=== PATIENT | male | born 1965 | race Caucasian/White ===

== ENCOUNTER 2017-10-13 09:10 | Emergency (ER) | payer OTHER ==
[~2017-10-13] VITALS: Ht 180.3 cm; Wt 64.9 kg
--- OUTSIDE RECORDS SUMMARY | 2017-10-13 09:13 | XMS REPORT | Clinical Summary ---
Author Author [facility] Organization [facility] Address Unknown Phone Unavailable Care Team Providers Care Head Of Merchandise Buying Name Role Phone Asked, Pcp PCP Unavailable Allergies No Known Allergies Current Medications Prescription Sig. Disp. Refills Start End Date Status Date sirolimus (RAPAMUNE) 1 MG Take 3 mg by mouth daily. Active tablet mycophenolate (MYFORTIC) Take 720 mg by mouth 2 Active 360 MG tablet,delayed (two) times a day. release (DR/EC) EC tablet amLODIPine (NORVASC) 5 mg Take 5 mg by mouth daily. Active tablet atorvastatin (LIPITOR) 20 Take 20 mg by mouth Active MG tablet daily. losartan (COZAAR) 50 MG Take 50 mg by mouth 2 Active tablet (two) times a day. atorvastatin (LIPITOR) 10 Take 10 mg by mouth 11/12/19 Discontin MG tablet daily. 17 ued amLODIPine (NORVASC) 10 Take 5 mg by mouth daily. 11/12/19 Discontin mg tablet 17 ued losartan (COZAAR) 25 MG Take 25 mg by mouth 11/12/19 Discontin tablet daily. 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 08/27/2017 Telephone Transplant Josie Christiansen 06/14/2017 Telephone Transplant Tiffany Crawford MA Medical clearance needed 06/13/2017 Refill General Surgery Anthony Tobias MD 06/05/2017 Refill General Surgery Anthony Tobias MD 05/01/2017 Refill General Surgery Anthony Tobias MD 12/12/2016 Refill General Surgery Anthony Tobias MD 11/12/2016 Telephone Transplant Leann Kam LCSW Call back re : med cost increase 11/12/2016 Telephone Transplant Yesy Christiansen, [facility] Rx Issues 11/11/2016 Hospital Transplant Anthony Tobias MD History of simultaneous Encounter kidney and pancreas transplant (Primary Dx); Mixed hyperlipidemia; Immunosuppressive management encounter following kidney transplant 11/11/2016 Hospital Transplant Anthony Tobias MD Pancreas replaced by Encounter transplant; Kidney replaced by transplant; Encounter for therapeutic drug monitoring 11/10/2016 Transcribe Transplant Virgen Hawkins RN Encounter for therapeutic Orders drug monitoring (Primary Dx); Kidney replaced by transplant; 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 11/04/2016 Refill General Surgery Anthony Tobias MD 11/03/2016 Refill General Surgery Anthony Tobias MD 10/30/2016 Refill General Surgery Anthony Tobias MD 10/17/2016 Refill General Surgery Anthony Tobias MD after 10/12/2016 Social History Tobacco Use Types Packs/Day Years Used Date Never Assessed Sex Assigned at Date Recorded Not on file Last Filed Vital Signs Vital Sign Reading Time Taken Blood Pressure 134/74 11/11/2016 2:16 PM CDT Pulse 80 11/11/2016 2:15 PM CDT Temperature 36.1 C (96.9 F) 11/11/2016 2:15 PM CDT Respiratory Rate 18 11/11/2016 2:15 PM CDT Oxygen Saturation 100% 11/11/2016 2:15 PM CDT Inhaled Oxygen - - Concentration Weight 62.8 kg (138 lb 8 oz) 11/11/2016 2:15 PM CDT Height 180.3 cm (5' 11") 11/11/2016 2:15 PM CDT Body Mass Index 19.32 11/11/2016 2:15 PM CDT Plan of Treatment Date Type Specialty Care Team Description 11/24/2017 Appointment Transplant Anthony Tobias MD [address] [place] [address] 11/24/2017 Appointment Transplant Anthony Tobias MD [address] [place] [address] Health Maintenance Due Date Last Done Comments COLONOSCOPY 2016 INFLUENZA VACCINE 03/02/2017 Results * Cytomegalovirus by PCR (09/02/2017 8:17 AM) Only the most recent of 2 results within the time period is included. Component Value Ref Range Cytomegalovirus by PCR Not-Detected Not-Detected IU/mL Cytomegalovirus by PCR See link below for PDF Lab ReportComment: Specimen Performing Laboratory [facility] DEPARTMENT OF PATHOLOGY AND GENOMIC MEDICINE [address] [place] [address] * IKNOW Viracor (09/02/2017 8:17 AM) Component Value Ref Range IKNOW Viracor 568 ATP ng/mL Comment: [employer]Know ATP (Cylex) Assay Range: Low Immune Cell Response: </=225 ATP ng/ml Moderate Immune Cell Response: 226-524 ATP ng/ml Strong Immune Cell Response: >/=525 ATP ng/ml Test performed by: VIRACOR/IBT [address] [place] [address] Specimen Performing Laboratory Blood [facility] DEPARTMENT OF PATHOLOGY AND GENOMIC MEDICINE [address] [place], [place] [id number] * Estimated GFR (09/02/2017 8:17 AM) Only the most recent of 2 results within the time period is included. Component Value Ref Range GFR Non Af Amer 53 (A) mL/min/1.73 m2 GFR Af Amer 65 mL/min/1.73 m2 Comment: Chronic kidney disease: <60 mL/min/1.73m2 Kidney failure: <15 mL/min/1.73m2 The estimated GFR is calculated from the IDMS-traceable Modification of Diet in Renal Disease Equation. The accuracy of the calculation is poor when the creatinine is normal. Calculated values >90 mL/min/1.73m2 are not reported. This equation has not been validated in children (<18 years), women, the elderly (>70 years), or ethnic groups other than Caucasians and Americans. Specimen Performing Laboratory Plasma specimen [facility] DEPARTMENT OF PATHOLOGY AND GENOMIC MEDICINE [address] [place] [address] * Donor specific antibody (09/02/2017 8:17 AM) Only the most recent of 2 results within the time period is included. Component Value Ref Range Donor specific antibody See link below for PDF Lab Report Specimen Performing Laboratory [facility] DEPARTMENT OF PATHOLOGY AND [facility] [address] [place] [phone] * BK virus by PCR (09/02/2017 8:17 AM) Only the most recent of 2 results within the time period is included. Component Value Ref Range BK virus PCR Not-Detected Not-Detected copies/mL BK virus PCR See link below for PDF Lab ReportComment: Specimen Performing Laboratory [facility] DEPARTMENT OF PATHOLOGY AND [facility] [address] [place] [address] * Sirolimus level (09/02/2017 8:17 AM) Only the most recent of 2 results within the time period is included. Component Value Ref Range Sirolimus 12.2 ng/mL Comment: The recommended trough is 4-12 ng/mL while on CNI (calcineurin inhibitors: Cyclcosporine and Tacrolimus). When used without CNI, higher trough concentrations may be desired, typically 12-20 ng/mL. Occasional patients may require 20-30 ng/mL. Test performed using [employer] chemiluminescent microparticle immunoassay for Sirolimus on the [employer] i System Specimen Performing Laboratory Blood [facility] DEPARTMENT OF PATHOLOGY AND GENOMIC MEDICINE [address] [place] [phone] * Insulin, random (09/02/2017 8:17 AM) Only the most recent of 2 results within the time period is included. Component Value Ref Range Insulin, random 14.6Comment: The reference interval for fasting mU/L insulin is 2.6-24.9 mU/L Specimen Performing Laboratory Plasma specimen [facility] DEPARTMENT OF PATHOLOGY AND [address] [address] * Proinsulin level (09/02/2017 8:17 AM) Only the most recent of 2 results within the time period is included. Component Value Ref Range Proinsulin 1.8 <=8.0 pmol/L Comment: INTERPRETIVE INFORMATION: Proinsulin, Intact Proinsulin, Intact: Fasting intact proinsulin values above the reference interval indicate a possible insulin secreting pancreatic tumor (insulinoma) in patients with hypoglycemia. Fasting intact proinsulin values range from 3 to 50 pmol/L in patients with untreated type 2 diabetes. Performed by [facility], [address] [place] [address] [email or web address], Joe Ball MD - Lab. Director Specimen Performing Laboratory Serum [address] [address] * C-peptide (09/02/2017 8:17 AM) Only the most recent of 2 results within the time period is included. Component Value Ref Range C-peptide 2.0 1.1 - 4.4 ng/mL Specimen Performing Laboratory Plasma specimen [facility] DEPARTMENT OF PATHOLOGY AND GENOMIC MEDICINE [address] [place] [address] * Urinalysis, automated with microscopy (09/02/2017 8:17 AM) Component Value Ref Range Color, UA Straw Appearance, UA Clear Specific gravity, UA 1.016 1.001 - 1.035 pH, UA 5.0 5.0 - 8.5 Protein, UA 3+ (A) Negative Glucose, UA Negative Negative Ketones, UA Negative Negative Bilirubin, UA Negative Negative Blood, UA Negative Negative Nitrite, UA Negative Negative Urobilinogen, UA <2.0 <2.0 Leukocyte esterase, UA Negative Negative WBC, UA <1 0 - 1 /HPF RBC, UA 2 (H) 0 - 1 /HPF Bacteria, UA Few None seen Yeast, UA None seen Yeast with pseudohyphae, None seen UA Specimen Performing Laboratory Urine [facility] DEPARTMENT OF PATHOLOGY AND GENOMIC MEDICINE [address] [place] [id number] * CBC with platelet and differential (09/02/2017 8:17 AM) Only the most recent of 2 results within the time period is included. Component Value Ref Range WBC 6.41 4.50 - 11.00 k/uL RBC 5.27 4.40 - 6.00 m/uL HGB 14.7 14.0 - 18.0 g/dL HCT 45.2 41.0 - 51.0 % MCV 85.8 82.0 - 100.0 fL MCH 27.9 27.0 - 34.0 pg MCHC 32.5 31.0 - 37.0 g/dL RDW - SD 39.9 37.0 - 55.0 fL MPV 10.4 8.8 - 13.2 fL Platelet count 293 150 - 400 k/uL Nucleated RBC 0.00 /100 WBC Neutrophils 72.6 (H) 39.0 - 69.0 % Lymphocytes 15.9 (L) 25.0 - 45.0 % Monocytes 7.2 0.0 - 10.0 % Eosinophils 3.0 0.0 - 5.0 % Basophils 0.8 0.0 - 1.0 % Immature granulocytes 0.5Comment: "Immature granulocytes" 0.0 - 1.0 % (promyelocytes, myelocytes, metamyelocytes) Specimen Performing Laboratory Blood [facility] AND [address] [address] * Uric acid level (09/02/2017 8:17 AM) Only the most recent of 2 results within the time period is included. Component Value Ref Range Uric acid 6.0 3.4 - 7.0 mg/dL Specimen Performing Laboratory Plasma specimen [facility] [address] [address] * Phosphorus level (09/02/2017 8:17 AM) Only the most recent of 2 results within the time period is included. Component Value Ref Range Phosphorus 2.2 (L) 2.4 - 4.5 mg/dL Specimen Performing Laboratory Plasma specimen [facility] DEPARTMENT PATHOLOGY AND [address] [address] * Magnesium level (09/02/2017 8:17 AM) Only the most recent of 2 results within the time period is included. Component Value Ref Range Magnesium 2.0 1.6 - 2.6 mg/dL Specimen Performing Laboratory Plasma specimen [facility] AND [address] [address] * Lipase level (09/02/2017 8:17 AM) Only the most recent of 2 results within the time period is included. Component Value Ref Range Lipase 23 13 - 60 U/L Specimen Performing Laboratory Plasma specimen [facility] [address] [address] * Hemoglobin A1c (09/02/2017 8:17 AM) Only the most recent of 2 results within the time period is included. Component Value Ref Range Hemoglobin A1C 5.6 4.0 - 5.6 % Comment: HbA1c cutoffs for diagnosing diabetes: 4.0% - 5.6%=normal 5.7% - 6.4%=increased risk for diabetes (prediabetes) >=6.5%=diabetes Goals for glycemic control (ADA 2016) < 7.0% Target for non adults with diabetes. More or less stringent targets may be appropriate for individual patients. <7.5% Target for Children and adolescents with type 1 diabetes. Specimen Performing Laboratory Blood [facility] [address] [place] [address] * Amylase level (09/02/2017 8:17 AM) Only the most recent of 2 results within the time period is included. Component Value Ref Range Amylase 74 28 - 100 U/L Specimen Performing Laboratory Plasma specimen [facility] DEPARTMENT OF PATHOLOGY AND GENOMIC MEDICINE [address] [place] [address] * Comprehensive metabolic panel (09/02/2017 8:17 AM) Only the most recent of 2 results within the time period is included. Component Value Ref Range Sodium 140 135 - 148 mEq/L Potassium 4.0 3.5 - 5.0 mEq/L Chloride 98 98 - 112 mEq/L CO2 31 24 - 31 mEq/L Anion gap 11 7 - 15 mEq/L Comment: Starting from October , anion gap calculation no longer incorporates potassium. Please note the change. BUN 22 (H) 6 - 20 mg/dL Creatinine 1.4 (H) 0.7 - 1.2 mg/dL Glucose 110 (H) 65 - 99 mg/dL Calcium 9.9 8.3 - 10.2 mg/dL Protein 7.6 6.3 - 8.3 g/dL Comment: [place] 4.6-7.0 g/dL 1 week 4.4-7.6 g/dL 7 months-1year 5.1-7.3 g/dL 1-2 years 5.6-7.5 g/dL >3 years 6.0-8.0 g/dL 18-150 6.3-8.3 g/dL Albumin 3.7 3.5 - 5.0 g/dL A/G ratio 0.9 0.7 - 3.8 Alkaline phosphatase 97 40 - 129 U/L AST 32 10 - 50 U/L ALT 32 5 - 50 U/L Total bilirubin 0.3 0.0 - 1.2 mg/dL Specimen Performing Laboratory Plasma specimen [facility] DEPARTMENT OF PATHOLOGY AND [facility] [address] [place] [phone] * Urinalysis screen and microscopy, with reflex to culture (11/11/2016 9:56 AM) Component Value Ref Range Specimen site Clean catch Color, UA Yellow Appearance, UA Clear Specific gravity, UA 1.016 1.001 - 1.035 pH, UA 7.0 5.0 - 8.5 Protein, UA 3+ (A) Negative Glucose, UA Negative Negative Ketones, UA Negative Negative Bilirubin, UA Negative Negative Blood, UA Negative Negative Nitrite, UA Negative Negative Urobilinogen, UA <2.0 <2.0 Leukocyte esterase, UA Negative Negative WBC, UA 1 0 - 1 /HPF RBC, UA 1 0 - 1 /HPF Bacteria, UA None seen None seen Yeast, UA None seen Yeast with pseudohyphae, None seen UA Specimen Performing Laboratory Urine [facility]PART[facility] OF PATHOLOGY AND GENOMIC MEDICINE [address] [place] [id number] * Protein, urine, random (11/11/2016 9:56 AM) Component Value Ref Range Protein, urine random 131 mg/dL Specimen Performing Laboratory Urine [facility] DEPARTMENT OF PATHOLOGY AND GENOMIC MEDICINE [address] [place] [address] * Creatinine level, urine, random (11/11/2016 9:56 AM) Component Value Ref Range Creatinine, urine, random 151 mg/dL Specimen Performing Laboratory Urine [facility]PART[facility] OF PATHOLOGY AND GENOMIC MEDICINE [address] [place] [phone] * Urine culture (11/11/2016 9:56 AM) Component Value Ref Range Urine culture SEE COMMENTComment: Bacteriuria screen negative. Specimen Performing Laboratory [facility]PART[facility] OF PATHOLOGY AND GENOMIC MEDICINE [address] [place] [address] * Lipid panel (11/11/2016 9:56 AM) Component Value Ref Range Cholesterol 241 (H) <200 mg/dL Triglycerides 106 <150 mg/dL HDL cholesterol 65 >40 mg/dL LDL cholesterol 160 (H)Comment: Result obtained by direct LDL <100 mg/dL measurement Lipid panel SeeBelow interpretation Comment: Total Cholesterol (mg/dL) <200 Desirable 200-239 Borderline-high >=240 High Triglycerides (mg/dL) <150 Normal 150-199 Borderline-high 200-499 High >=500 Very high HDL Cholesterol (mg/dL) <40 Low (male) <40 Low (female) LDL Cholesterol (mg/dL) <100 Optimal 100-129 Near or above optimal 130-159 Borderline-high 160-189 High >=190 Very high Risk Catergories that modify LDL goals. Risk Catergories LDL goal (mg/dL) CHD and CHD risk equivalent <100 (10-year risk >20%) Multiple (2+) risk factors <130 (10-year risk=<20%) 0-1 risk factors <160 (<10-year risk) Defining levels of lipids in metabolic syndrome Triglycerides >=150 mg/dL HDL Cholesterol Men <40 mg/dL Women <40 mg/dL Non-HDL cholesterol is a second target for therapy in persons with high triglycerides (>=200 mg/dL) Specimen Performing Laboratory Plasma specimen [facility] DEPARTMENT OF PATHOLOGY AND GENOMIC MEDICINE [address] [place] [address] after 10/12/2016 Insurance Payer Benefit Subscriber ID Type Phone Address Plan / Group [facility] xxxxxxxxx HMO/PPO THCARE CHOICE/CHO ICE +
--- OUTSIDE RECORDS SUMMARY | 2017-10-13 09:13 | XMS REPORT | Continuity of Care Document ---
Author Author [facility] [address] [place] [address] Care Team Providers Care Director Of Services Name Role Phone NONE, NONE PCP Unavailable Fabián Skaggs Rndphys Dom Mullerchita Attphys Muller Cecile Rndphys Allergies, Adverse Reactions, Alerts No allergy information available. Medications Active Medications Medication Dose Units Route Sig Qty Days Start Date Discontinued Date Status Instructions Atorvastatin Calcium 20 MG ORAL DAILY October 11, 2017 Active Losartan Potassium 50 MG ORAL TWICE DAILY October 11, 2017 Active Mycophenolate Sodium 720 MG ORAL TWICE DAILY October 11, 2017 Active Amlodipine 5 MG ORAL DAILY October 11, 2017 Active Sirolimus 3 MG ORAL DAILY October 11, 2017 Active Problem List Active Problems Medical Problem Onset Date Status Cervical radiculopathy Active CKD (chronic kidney disease) Active Chest pain Active HTN (hypertension) Active Procedures Procedure Date Status Chest Single View October 11, 2017 completed Relevant Diagnostic Tests and/or Laboratory Data Laboratory Results Test Date/Time Result Interp. Ref. Range Result Comment White Blood Count October 11, 2017 10:20am 5.2 K/uL 4.3-10.9 Red Blood Count October 11, 2017 10:20am 5.12 M/uL 4.33-5.43 Hemoglobin October 11, 2017 10:20am 14.4 g/dL 13.6-17.9 Hematocrit October 11, 2017 10:20am 43.1 % 39.6-49.0 Mean Corpuscular Volume October 11, 2017 10:20am 84.1 fL 80-100 Mean Corpuscular Hemoglobin October 11, 2017 10:20am 28.2 pg 27.0-35.0 Mean Corpuscular Hemoglobin Concent October 11, 2017 10:20am 33.5 g/dL 32.0 -36.0 Platelet Count October 11, 2017 10:20am 280 K/uL 152-406 Red Cell Distribution Width October 11, 2017 10:20am 12.6 % 12.1-15.2 Mean Platelet Volume October 11, 2017 10:20am 9.0 fL 7.6-11.3 Neutrophils % October 11, 2017 10:20am 72.3 % 41.7-73.7 Lymphocytes % October 11, 2017 10:20am 16.7 % 15.3-44.8 Monocytes % October 11, 2017 10:20am 8.8 % 3.3-12.3 Eosinophils % October 11, 2017 10:20am 1.3 % 0-4.4 Basophils % October 11, 2017 10:20am 0.9 % 0-1.3 Absolute Neutrophil October 11, 2017 10:20am 3.7 K/uL 1.8-8.0 Absolute Lymphocytes (CBC) October 11, 2017 10:20am 0.9 K/uL 0.7-4.9 Absolute Monocytes (CBC) October 11, 2017 10:20am 0.5 K/uL 0.1-1.3 Absolute Eosinophils (CBC) October 11, 2017 10:20am 0.1 K/uL 0-0.5 Absolute Basophils (CBC) October 11, 2017 10:20am 0.0 K/uL 0-0.5 Prothrombin Time October 11, 2017 10:20am 11.3 SECONDS 9.5-12.5 INR International Normalized Ratio October 11, 2017 10:20am 0.96 Monitor pts using INR value (not prothrombin time) INR Coumadin Therapy: Low Range (prophylaxis) 2.0-3.0 High Range (high risk of clot formation) 2.5-3.5 Activated Partial Thromboplast Time October 11, 2017 10:20am 35.5 SECONDS 24.3-36.9 Sodium Level October 11, 2017 10:20am 133 mEq/L Low 135-145 Potassium Level October 11, 2017 10:20am 3.6 mEq/L 3.6-5.0 Chloride Level October 11, 2017 10:20am 97 mEq/L Low 101-111 Carbon Dioxide Level October 11, 2017 10:20am 28 mEq/L 21-31 Glucose Level October 11, 2017 10:20am 108 mg/dL 65-120 ADA Clinical Practice Recommendation: <100 mg/dl=Normal Fasting Glucose Blood Urea Nitrogen October 11, 2017 10:20am 15 mg/dL 6-20 Creatinine October 11, 2017 10:20am 0.99 mg/dL 0.61-1.24 The creatinine method used has been calibrated to be traceable to Isotope dilution Mass Spectrometry (IDMS). For more information: www.nkdep.nih.gov Estimat Glomerular Filtration Rate October 11, 2017 10:20am 80 mL/min Low 90 - FOR CHRONIC KIDNEY DISEASE: GFR STAGE DESCRIPTION =/>90 STAGE 1 NORMAL--OR-- MINIMAL KIDNEY DAMAGE WITH NORMAL GFR 60-89 STAGE 2 MILD DECREASE IN GFR 30-59 STAGE 3 MODERATE DECREASE IN GFR 15-29 STAGE 4 SEVERE DECREASE IN GFR <15 STAGE 5 KIDNEY FAILURE The Glomerular Filtration Rate (GFR) has been calculated using the IDMS-Traceable MDRD Study Equation. Aspartate Amino Transf (AST/SGOT) October 11, 2017 10:20am 27 IU/L 10-42 Alanine Aminotransferase (ALT/SGPT) October 11, 2017 10:20am 24 IU/L 10-60 Alkaline Phosphatase October 11, 2017 10:20am 98 IU/L 42-121 Total Bilirubin October 11, 2017 10:20am 0.8 mg/dL 0.3-1.2 Direct Bilirubin October 11, 2017 10:20am 0.1 mg/dL 0-0.2 Calcium Level October 11, 2017 10:20am 9.6 mg/dL 8.5-10.5 Serum Total Protein October 11, 2017 10:20am 7.6 g/dL 6.0-8.3 Albumin October 11, 2017 10:20am 4.4 g/dL 3.2-5.5 Globulin October 11, 2017 10:20am 3.2 g/dL 2.3-3.5 Albumin/Globulin Ratio October 11, 2017 10:20am 1.4 1.1-1.8 Creatine Kinase October 11, 2017 10:20am 421 IU/L High 22-269 Creatine Kinase MB October 11, 2017 10:20am 4.1 ng/ml High 0.3-4.0 Rapid Troponin I October 11, 2017 10:20am < 0.03 ng/mL Troponin I October 11, 2017 5:34pm < 0.03 ng/mL B-Type Natriuretic Peptide October 11, 2017 10:20am 56 pg/ml Magnesium Level October 11, 2017 10:20am 1.7 mg/dL Low 1.8-2.5 Urine Specific [place] October 11, 2017 10:23am 1.010 Urine Glucose October 11, 2017 10:23am Negative Urine Ketones October 11, 2017 10:23am Negative Urine Blood October 11, 2017 10:23am Trace High Urine pH October 11, 2017 10:23am 7.0 Urine Total Protein October 11, 2017 10:23am 1+ High Urine Nitrite October 11, 2017 10:23am Negative Urine Leukocyte Esterase October 11, 2017 10:23am Negative Discharge Summary Encounter: Discharged Inpatient Admit Date: October 11, 2017 12:55pm Discharge Date: October 11, 2017 6:47pm [facility] NAME: HARSH BILLS ADMITTING: Cecile Muller MD ADMIT DATE: 10/11/17 ATTENDING: Cecile Muller MD : 1965 ACCOUNT NO: [id number] PATIENT TYPE: ADM IN LOCATION: [facility] Nurse's [facility] Name: Harsh Bills Age: 52 yrs Sex: Male : 1965 Arrival Date: 10/11/2017 Time: 09:45 Bed 4 Private MD: Diagnosis: Chest pain, unspecified Presentation: 10/11 09:46 Presenting complaint: Patient states: I have to go to the restroom right now. (pt going ch to the restroom now, states he must go now. triage delayed per pt request ). 09:46 Presenting complaint: Patient states: pain to R arm started at 0400, woke me up. at ch 0500 the pain went across my back, down my L arm, then into my chest. at 0900 my R arm started tingling. denies nv, SOB, dizzyness. Transition of care: patient was not received from another setting of care. Onset of symptoms was October 11, 2017 at 04:00. Care prior to arrival: None. 09:46 Method Of Arrival: Ambulatory 09:46 Acuity: GABI 3 ch 09:46 Care prior to arrival: Medication(s) given: Motrin, 200 mg. Triage Assessment: 09:56 General: Appears in no apparent distress. comfortable, Behavior is calm, cooperative, ch appropriate for age. Pain: Complains of pain in back, chest, right arm and left arm Pain currently is 8 out of 10 on a pain scale. 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 - Social history:: Smoking status: Patient/guardian denies using tobacco, Patient/guardian denies using alcohol, street drugs. Screenin:32 Abuse screen: Denies threats or abuse. Denies injuries from another. Nutritional aj1 screening: No deficits noted. Tuberculosis screening: No symptoms or risk factors identified. 14:47 Fall Risk No fall in past 12 months (0 pts). No secondary diagnosis (0 pts). IV access aj1 (20 points). Ambulatory Aid- None/Bed Rest/Nurse Assist (0 pts). Gait- Normal/Bed Rest/Wheelchair (0 pts) Mental Status- Oriented to own ability (0 pts). Total Juárez Fall Scale indicates No Risk (0-24 pts). Assessment: 10:32 General: Appears in no apparent distress. uncomfortable, Behavior is calm , cooperative, aj1 appropriate for age. Pain: Complains of pain in right scapular area and anterior aspect of left upper chest Pain radiates to right arm and left arm Pain currently is 6 out of 10 on a pain scale. Quality of pain is described as pressure, sharp, stabbing, Pain began at 0400 this am Is intermittent. Neuro: Level of Consciousness is awake, alert, obeys commands, Oriented to person, place, time, situation, Speech is normal, Facial symmetry appears normal, Reports paresthesias in right arm and left arm Denies weakness blurred vision dizziness, headache. Cardiovascular: Reports chest pain, nausea, Denies palpitations, shortness of breath, syncope, vomiting, Heart tones S1 S2 present Patient's skin is warm and dry. Rhythm is sinus rhythm Chest pain quality is pressure, sharp, stabbing, is located in right anterior chest wall radiates to bilateral arm(s) back began at 0400 this AM. Respiratory: Airway is patent Respiratory effort is even, unlabored, Respiratory pattern is regular, symmetrical, Breath sounds are clear bilaterally. Denies cough, shortness of breath. GI: No signs and/or symptoms were reported involving the gastrointestinal system. : No signs and/or symptoms were reported regarding the genitourinary system. EENT: No signs and/or symptoms were reported regarding the EENT system. Derm: No signs and/or symptoms reported regarding the dermatologic system. Skin is pink, warm \T\ dry. normal. Musculoskeletal: No signs and/or symptoms reported regarding the musculoskeletal system. Circulation, motion, and sensation intact. 11:26 Reassessment: Patient appears in no apparent distress at this time. No changes from aj1 previously documented assessment. Patient and/or family updated on plan of care and expected duration. Pain level reassessed. Patient is alert, oriented x 3 , equal unlabored respirations, skin warm/dry/pink. 12:22 Reassessment: Patient and/or family updated on plan of care and expected duration. Pain aj1 level reassessed. General: Appears in no apparent distress. comfortable, Behavior is calm, cooperative. Pain: Pain currently is 4 out of 10 on a pain scale. Neuro: Level of Consciousness is awake, alert, obeys commands, Oriented to person, place , time, situation, Speech is normal, Facial symmetry appears normal. Cardiovascular: Patient's skin is warm and dry. Rhythm is sinus rhythm. Respiratory: Airway is patent Respiratory effort is even, unlabored, Respiratory pattern is regular, symmetrical. GI: No signs and/or symptoms were reported involving the gastrointestinal system. Derm : Skin is pink, warm \T\ dry. normal. Musculoskeletal: Circulation, motion, and sensation intact. 13:25 Reassessment: Patient appears in no apparent distress at this time. No changes from aj1 previously documented assessment. Patient and/or family updated on plan of care and expected duration. Pain level reassessed. Patient is alert, oriented x 3 , equal unlabored respirations, skin warm/dry/pink. 14:30 Reassessment: Patient and/or family updated on plan of care and expected duration. Pain aj1 level reassessed. General: Appears in no apparent distress. comfortable, Behavior is calm, cooperative. Neuro: Level of Consciousness is awake, alert, obeys commands, Oriented to person, place, time, situation, Speech is normal, Facial symmetry appears normal, Reports decreased tingling sensation since coming to ER. Cardiovascular: Heart tones S1 S2 present Patient's skin is warm and dry. Rhythm is sinus rhythm. Respiratory: Airway is patent Respiratory effort is even, unlabored, Respiratory pattern is regular, symmetrical, Breath sounds are clear bilaterally. Derm: Skin is pink, warm \T\ dry. normal. Musculoskeletal: Circulation, motion, and sensation intact. Vital Signs: 09:56 BP 166 / 108; Pulse 83; Resp 14; Temp 97.9; Pulse Ox 100% on R/A; Weight 61.23 kg; Height 5 ft. 11 in. (180.34 cm); Pain 8/10; 11:27 BP 155 / 88; Pulse 80; Resp 18; Pulse Ox 100% on R/A; aj1 12:23 BP 143 / 78; Pulse 79; Resp 18; Pulse Ox 100% on R/A; aj1 13:30 BP 141 / 83; Pulse 71; Resp 16 S; Pulse Ox 100% on R/A; jl7 14:30 BP 145 / 78; Pulse 77; Resp 18; Pulse Ox 99% on R/A; aj1 09:56 Body Mass Index 18.83 (61.23 kg, 180.34 cm) ED Course: 09:45 Patient arrived in ED. mr 09:54 Triage completed. 09:56 Arm band placed on left wrist. Patient placed in an exam room, on a stretcher. 10:04 Renu Burns, RN is Primary Nurse. aj1 10:06 Oh Veronica MD is Attending Physician. ma2 10:18 Initial lab(s) drawn, by wv, sent to lab. Inserted saline lock: 20 gauge in right jb1 antecubital area, using aseptic technique. Blood collected. 10:22 X-ray completed. Portable x-ray completed in exam room. Patient tolerated procedure jr1 well. 10:24 XRAY Chest (1 view) In Process Unspecified. EDMS 10:32 Patient has correct armband on for positive identification. Bed in low position. Call aj1 light in reach. Side rails up X 1. merchandise supervisor on. Pulse ox on. NIBP on. 10:32 No provider procedures requiring assistance completed. aj1 10:45 EKG done, by education technician. reviewed by Fabián Skaggs MD. tc 12:49 Cecile Muller MD is Hospitalizing Provider. ma2 14:42 Report given to QUITA Novak on 4th floor. aj 14:47 Patient admitted, IV remains in place. aj1 Administered Medications: 10:31 Drug: NS 0.9% 1000 ml Route: IV; Rate: 1 bolus; Site: right antecubital; aj1 12:54 Drug: Magnesium Sulfate 1 grams Route: IVPB; Infused Over: 1 hrs; Site: right aj1 antecubital; 12:55 Drug: NS 0.9% 500 ml Route: IV; Rate: bolus; Site: right antecubital; aj1 13:14 Drug: Aspirin Chewable Tablet 324 mg Route: PO; aj1 Outcome: 12:50 Decision to Hospitalize by Provider. ma2 15:11 Patient left the ED. kt1 Signatures: Dispatcher [employer] EDMS Rory Doyle Christina, RN Renu Bullock ch RN RN aj1 Nettie Stovall RN RN Cinthya Yun mr Archana, Leann 1 Lorraine Marte RN RN kt1 Chayito Mcconnell, research technician EKG Ttc Óscar Rausch, RN RN jl7 Oh Veronica MD MD ma2 10/11/17 1512 Advance Directives Advance Directive Response Recorded Date/Time Does Patient Have Living Will No October 11, 2017 5:50pm Durable Power of Boots And Shoes Supervisor for Health Care No October 11, 2017 5:50pm Would you like additional information No October 11, 2017 3:15pm Chief Complaint and Reason for Visit Encounter Admit Date Chief Complaint Reason for Visit Discharged Inpatient October 11, 2017 12:55pm CHEST PAIN Chronic kidney disease Chest pain Cervical radiculopathy Hypertension Hospital Discharge Instructions Additional Discharge Instructions PROBLEM: Chest Pain GOAL: Clear understanding of disease process INSTRUCTIONS: F/u with PCP in 1 to 2 week post discharge No new medicaiton. Return to the ER if symptoms persist or worsen. Diet: Regular Activity: Ad mike IMMUNIZATION Influenza Vaccine Indicated: No Influenza Vaccine Given: Date Given: Pneumonia Vaccine Indicated: No Pneumonia Vaccine Given: Date Given: Instruction/Education Provided DI for Cervical Radiculopathy Hospital Discharge Medications Medication Dose Units Route Sig Qty Days Order Date Status Instructions Atorvastatin Calcium 20 MG ORAL DAILY October 11, 2017 Active Losartan Potassium 50 MG ORAL TWICE DAILY October 11, 2017 Active Mycophenolate Sodium 720 MG ORAL TWICE DAILY October 11, 2017 Active Amlodipine 5 MG ORAL DAILY October 11, 2017 Active Sirolimus 3 MG ORAL DAILY October 11, 2017 Active Encounters Encounter Facility Location Admit Date Discharge Date Attending Provider Discharged Inpatient [facility] October 11, 2017 12:55pm October 11, 2017 6:47pm Cecile Muller Encounter Diagnosis Onset Date Chronic kidney disease Chest pain Cervical radiculopathy Hypertension Family History Query Response Instance Date Recorded Comment Nurses notes denies any history Mother October 11, 2017 5:50pm Nurses notes Denies any history Father October 11, 2017 5:50pm Functional Status Query Response Date Recorded Comment Mental Status Oriented to Own Ability October 11, 2017 3:15pm Query Response Date Recorded Comment Bathe Self Independent October 11, 2017 3:15pm Completes ADL's Without Assistance Yes October 11, 2017 3:15pm Cook for Self Independent October 11, 2017 3:15pm Dress/Parker Self Independent October 11, 2017 3:15pm Feed Self Independent October 11, 2017 3:15pm Toileting Independent October 11, 2017 3:15pm Immunizations No known immunizations. Payers Payer Name Policy Type Covered Democrat Covered Democrat Id Relationship Subscriber Subscriber Id [facility] Maintenance Organization (HMO) [employer]ILLS [id number] SAME PATIENT (SELF) Plan of Care Instructions DI for Cervical Radiculopathy Social History Query Response Date Recorded Comment Alcohol Use? No October 11, 2017 5:50pm CD- Drugs? No October 11, 2017 5:50pm Query Response Start Date Stop Date Smoking Status Never smoker Vital Signs Vital Reading Result Reference Range Collection Date/Time Height 5 ft 11 in October 11, 2017 3:15pm Weight 143 lb 3.2 oz October 11, 2017 3:15pm Temperature 97.6 F 96.8 F-100.9 F October 11, 2017 5:50pm Pulse 78 BPM 50-90 October 11, 2017 5:50pm Respiration 18 RPM 12-20 October 11, 2017 5:50pm Pulse Oximetry 99 % 91- October 11, 2017 5:50pm Blood Pressure Systolic 158 90-140 October 11, 2017 5:50pm Blood Pressure Diastolic 96 60-90 October 11, 2017 5:50pm Body Mass Index 20.0 October 11, 2017 3:15pm
--- OUTSIDE RECORDS SUMMARY | 2017-10-13 09:13 | XMS REPORT ---
Author Author [facility] Address Unknown Phone Unavailable Care Team Providers Care Diamond Blender Name Role Phone ABIGAIL MOLINA PP Unavailable Cecile Muller Unavailable Unavailable Problems This patient has no known problems. Allergies, Adverse Reactions, Alerts This patient has no known allergies or adverse reactions. Medications This patient has no known medications. Encounters Start Date/Time End Date/Time Encounter Type Admission Type Attending Clinicians Care Facility Care Department Encounter ID 2016-12-15 11:02:00 2016-12-15 11:02:00 Outpatient C [facility] [id number] Results Test Description Test Time Test Comments Text Results Atomic Results Result Comments Troponin I 2017-10-11 18:07:00 Troponin I (test code=TROP) < 0.03 <0.03 Primary Language O[place]i Physician Instructions Edit Troponin Times according to first ED TroponinTroponin [id number] 14:41:00* Test Item Value Reference Range Comments Troponin I (test code=TROP) < 0.03 <0.03 Primary Language [place]i Physician Instructions Edit Troponin Times according to first ED TroponinProthrombin time (PT) with international normalized ratio (INR)2017-10-11 13:11:00* Test Item Value Reference Range Comments PT Prothrombin Time (test code=PROTIME) 11.3 s 9.5-12.5 INR in Blood by Coagulation assay (test ayvw=47171-6) 0.96 Monitor pts using INR value (not prothrombin time) INR Coumadin Therapy: Low Range ( prophylaxis) 2.0-3.0 High Range (high risk of clot formation) 2.5-3.5 Test Ordered to Rule Out VTE/DVT? N Test Ordered to Rule Out VTE/DVT? NPTT, Activated Partial [id number] 13:11:00* Test Item Value Reference Range Comments PTT, Activated Partial Thromb (test code=PTT) 35.5 s 24.3-36.9 Test Ordered to Rule Out VTE/DVT? N Test Ordered to Rule Out VTE/DVT? NBrain natriuretic peptide (BNP) hjgahvniwsw5839-64-21 10:57:00* Test Item Value Reference Range Comments Brain natriuretic peptide (BNP) measurement (test eiua=86870-1) 56 pg/mL <= 100 Basic Metabolic [id number] 10:57:00* Test Item Value Reference Range Comments Sodium level (test sewf=ZDT8381) 133 meq/L 135-145 3.6 Chloride measurement (test wzeh=GWR3510) 97 meq/L 101-111 Bicarbonate (test code=CO2) 28 meq/L 21-31 Glucose measurement (test qtfo=AYL4310) 108 mg/dL 65-120 ADA Clinical Practice Recommendation: <100 mg/dl=Normal Fasting Glucose BUN Bld-mCnc (test gqbe=1401-1) 15 mg/dL 6-20 Creatinine measurement (test qdwa=AUY6821) 0.99 mg/dL 0.61-1.24 The creatinine method used has been calibrated to be traceable to Isotope dilution Mass Spectrometry (IDMS). For more information: www.nkdep.nih.gov Estimated glomerular filtration rate (GFR) determination (test powd=34978-5) 80 mL =/>90 FOR CHRONIC KIDNEY DISEASE: GFR STAGE DESCRIPTION =/>90 STAGE 1 NORMAL--OR-- MINIMAL KIDNEY DAMAGE WITH NORMAL GFR 60-89 STAGE 2 MILD DECREASE IN GFR 30-59 STAGE 3 MODERATE DECREASE IN GFR 15-29 STAGE 4 SEVERE DECREASE IN GFR <15 STAGE 5 KIDNEY FAILURE The Glomerular Filtration Rate (GFR) has been calculated using the IDMS-Traceable MDRD Study Equation. Calcium Level (test code=CA) 9.6 mg/dL 8.5-10.5 Liver (Hepatic) Yfjzswyg3382-72-00 10:57:00* Test Item Value Reference Range Comments Aspartate aminotransferase (AST) measurement (test mcwh=HPV3619) 27 [iU]/L 10 -42 ALT/SGPT (test code=SGPT) 24 [iU]/L 10-60 Alkaline Phosphatase (test code=ALK) 98 [iU]/L 42-121 Bilirubin total (test bybv=FXM9931) 0.8 mg/dL 0.3-1.2 Bilirubin direct (test cnkg=3074-8) 0.1 mg/dL 0-0.2 Serum total protein measurement (test watf=7609-8) 7.6 g/dL 6.0-8.3 Albumin measurement (test lnjn=FBV9125) 4.4 g/dL 3.2-5.5 Globulin (test code=GLOB) 3.2 g/dL 2.3-3.5 Albumin/Globulin Ratio (test code=A/G) 1.4 1.1-1.8 Creatine Rkxjlhzulttxi5247-96-74 10:57:00* Test Item Value Reference Range Comments Creatine Phosphokinase (test code=CPK) 421 [iU]/L 22-269 CKMB Creatine Kinase [id number] 10:57:00* Test Item Value Reference Range Comments CKMB Creatine Kinase MB (test code=CKMB) 4.1 ng/mL 0.3-4.0 [id number] 10:57:00* Test Item Value Reference Range Comments Magnesium (test code=MG) 1.7 mg/dL 1.8-2.5 Troponin (Emerg Dept Use Only)2017-10-11 10:53:00* Test Item Value Reference Range Comments Troponin (Emerg Dept Use Only) (test code=TROPED) < 0.03 <0.03 Comment Bed:4 Test Ordered to Rule Out VTE/DVT? NComplete blood count (CBC) with automated white blood cell (WBC) knpnxsntayel8183-60-55 10:33:00* Test Item Value Reference Range Comments White blood cell count (test ojoi=SBZ8364) 5.2 4.3-10.9 Blood erythrocytes count (number/volume) (test vjbl=56881-7) 5.12 M/ul 4.33- 5.43 Hemoglobin measurement (test cjqm=TJP4695) 14.4 g/dL 13.6-17.9 Blood hematocrit (volume fraction) (test besu=97856-0) 43.1 % 39.6-49.0 MCV (test dukq=34981-3) 84.1 fL 80-100 MCH (test httw=03876-1) 28.2 pg 27.0-35.0 MCHC (test code=MCHC) 33.5 g/dL 32.0-36.0 Platelets (test code=PLT) 280 152-406 Red Cell Distribution Width (test code=RDW) 12.6 % 12.1-15.2 Blood platelet mean volume (test fxaw=86454-8) 9.0 fL 7.6-11.3 Neutrophils % (test code=RAMAN%) 72.3 % 41.7-73.7 Lymphocytes/leuk NFr Bld (test qwtd=50696-5) 16.7 % 15.3-44.8 Monocyte percentage (test efgq=7640-4) 8.8 % 3.3-12.3 Eosinophil % (test uvvh=050-2) 1.3 % 0-4.4 Basophil % (test rkvf=29368-2) 0.9 % 0-1.3 Absolute neutrophil count (test lmrm=291-6) 3.7 1.8-8.0 Absolute lymphocyte count (test mwhc=41790-6) 0.9 0.7-4.9 Absolute monocyte count (test ywgo=005-2) 0.5 0.1-1.3 Absolute Eosinophils (test code=EOA) 0.1 0-0.5 Absolute Basophils (test code=BASA) 0.0 0-0.5 Urine dipstick testing at bxsjo-er-duhe4722-03-12 10:30:00* Test Item Value Reference Range Comments Urine specific gravity measurement (test zhbl=5075-2) 1.010 1.005-1.030 Urine glucose detection (test tlex=1182-4) Negative NEG Urine Ketones (test code=UKET) NEGATIVE NEG Urine blood detection (test xjja=65112-8) TRACE NEG Urine pH (test uxay=2263-4) 7.0 5.0-7.0 Urinalysis with microscopy (test lfwh=08442-6) 1+ NEG Urine Nitrate (test code=UNIT) NEGATIVE NEG Urine Leukocyte Esterase (test code=UESTR) NEGATIVE NEG Comment Bed:4 ARM TRACE NEG NEG NEG NEG 7.0 1+ Y 1.010Chest [place] [address] RADIOLOGY SERVICES REPORT Name: HARSH ESQUIVEL Acct Number: [id number] :1965 Age:52 Sex:M Ord Phys: Oh Veronica MD Unit Number: [id number] [place] [address] Dr: NONE Status: REG ER ER Exam Date: 10/11/17 EXAM DESCRIPTION: RAD - Chest Single View - 10/11/2017 10:23 am CLINICAL HISTORY: Right-sided chest and arm pain COMPARISON: None. TECHNIQUE: AP portable chest image was obtained 1016 hours . FINDINGS: Lungs are clear. Heart and vasculature are normal. No measurable pleural effusion and no pneumothorax. No gross bony abnormality seen. No acute aortic findings suspected. IMPRESSION: No acute cardiopulmonary process. Signed By: Rory Gregory MD Signed AT: 10/11/17 1033
[2017-10-13 10:00] LABS: BASOPHILS % 0.5 % (0.0-1.0); EOSINOPHILS # (AUTO) 0.1 (0.0-0.4); EOSINOPHILS % 1.6 % (0.0-6.0); HEMATOCRIT 40.2 % (38.2-49.6); HEMOGLOBIN 13.5 g/dL (14.0-18.0); LYMPHOCYTES # (AUTO) 1.3 (1.0-3.2); LYMPHOCYTES % 22.2 % (18.0-39.1); MEAN CORPUSCULAR HEMOGLOBIN 28.5 pg (28-32); MEAN CORPUSCULAR HGB CONC 33.6 g/dL (31-35); MEAN CORPUSCULAR VOLUME 84.8 fL (81-99); MONOCYTES # (AUTO) 0.7 (0.2-0.8); MONOCYTES % 11.7 % (4.4-11.3); NEUTROPHILS # (AUTO) 3.6 (2.1-6.9); NEUTROPHILS % 63.8 % (38.7-80.0); PLATELET COUNT 278 x10e3/uL (140-360); RED BLOOD COUNT 4.74 x10e6/uL (4.3-5.7); RED CELL DISTRIBUTION WIDTH 12.4 % (11.7-14.4)
[2017-10-13 10:13] LABS: ALANINE AMINOTRANSFERASE 23 IU/L (0-55); ALBUMIN 3.7 g/dL (3.5-5.0); ALBUMIN/GLOBULIN RATIO 1.1 (0.8-2.0); ALKALINE PHOSPHATASE 105 IU/L (40-150); ANION GAP 12.1 mmol/L (8-16); BLOOD UREA NITROGEN 13 mg/dL (7-26); BUN/CREATININE RATIO 11 (6-25); CALCIUM 9.7 mg/dL (8.4-10.2); CARBON DIOXIDE 30 mmol/L (22-29); CHLORIDE 104 mmol/L (98-107); CREATININE, SERUM 1.16 mg/dL (0.72-1.25); EST GLOMERULAR FILTRATION RATE > 60 ML/MIN (60-); GLUCOSE 111 mg/dL (74-118); POTASSIUM 4.1 mmol/L (3.5-5.1); SODIUM 142 mmol/L (136-145)
[2017-10-13 10:21] LABS: CREATINE KINASE 279 IU/L (30-200)
--- NOTE | 2017-10-13 10:23 | Diagnostic Imaging Report ---
PROCEDURE: X-RAY CHEST, TWO VIEWS COMPARISON: None. INDICATIONS: NUMBNESS IN LIMBS FINDINGS: LUNGS: No consolidations or edema. PLEURA: No effusions or pneumothorax. HEART \T\ MEDIASTINUM: The heart is within normal size-limits. BONES \T\ SOFT TISSUES: No acute findings. CONCLUSION: No acute thoracic abnormality. Dictated by: Dwaine Vila M.D. on 10/13/2017 at 10:22 Electronically approved by: Dwaine Vila M.D. on 10/13/2017 at 10:22
--- NOTE | 2017-10-13 10:33 | Diagnostic Imaging Report ---
Exam: Head CT without contrast History: Bilateral hand numbness Comparison studies: None Technique: Axial images were obtained from the skull base to the vertex. Coronal and sagittal images reconstructed from the axial data. Intravenous contrast: None Findings: Scalp: No abnormalities. Bones: No fractures, blastic or lytic lesions. Brain sulci: Appropriate for age. Ventricles: Normal in size and configuration. No hydrocephalus. Extra-axial spaces: No masses, no fluid collection. Parenchyma: No abnormal densities. No masses, hemorrhage, acute or chronic vascular insults. Sellar/suprasellar region: No abnormalities. Craniocervical junction: Patent foramen magnum. No Chiari one malformation. Incidental findings: Minimal calcified atherosclerosis in the right carotid siphon. IMPRESSION: 1. No acute intracranial abnormalities. 2. Specifically, no mass, acute hemorrhage or acute cortical vascular insults. Signed by: Dr. Dwaine Polo M.D. on 10/13/2017 10:29 AM
[2017-10-13 11:33] VITALS: BP 142/101
== END 2017-10-13 11:55 | disposition home or self-care (01) ==
LOC: ER 09:10
DX: M79.621 Pain in right upper arm (principal); M79.622 Pain in left upper arm; M79.642 Pain in left hand; M79.641 Pain in right hand; M79.632 Pain in left forearm; M79.631 Pain in right forearm; M79.662 Pain in left lower leg; M79.661 Pain in right lower leg; R20.0 Anesthesia of skin
CPT/HCPCS: 36415; 70450; 71046; 80053; 82550; 82553; 83735; 84484; 85025; 99284